=== PATIENT | male | born 1990 | race Caucasian/White ===

== ENCOUNTER 2021-06-18 09:30 | Emergency (ER) | payer MEDICAID ==
[~2021-06-18] VITALS: Ht 170.2 cm; Wt 82.0 kg
[2021-06-18] MEDS ORDERED: IBUPROFEN 600MG TABLET PO ONE (09:45)
[2021-06-18 09:48] VITALS: BP 100/71
[2021-06-18] MEDS ORDERED: T3 PO (10:45)
== END 2021-06-18 10:54 | disposition home or self-care (01) ==
LOC: ER 09:30
DX: S62.91XA Unspecified fracture of right hand, initial encounter for closed fracture (principal); Y08.89XA Assault by other specified means, initial encounter; Y93.89 Activity, other specified; Y92.89 Other specified places as the place of occurrence of the external cause; Y99.8 Other external cause status; F12.10 Cannabis abuse, uncomplicated; Z88.0 Allergy status to penicillin
CPT/HCPCS: 29125; 73130; 99283

== ENCOUNTER 2023-03-19 10:32 | Emergency (ER) | payer MEDICAID, OTHER ==
[~2023-03-19] VITALS: Ht 172.7 cm; Wt 81.0 kg
[~2023-03-19 10:32] MED LIST: T3 PO
[2023-03-19 10:39] VITALS: TEMP 98.4; O2SAT 97
[2023-03-19 13:47] VITALS: BP 130/74; PULSE 88; RESP 16
== END 2023-03-19 13:47 | disposition home or self-care (01) ==
LOC: ER 10:32
DX: S62.302A Unspecified fracture of third metacarpal bone, right hand, initial encounter for closed fracture (principal); Z88.0 Allergy status to penicillin; Y04.0XXA Assault by unarmed brawl or fight, initial encounter; Y93.89 Activity, other specified; Y92.89 Other specified places as the place of occurrence of the external cause; Y99.8 Other external cause status
CPT/HCPCS: 29125; 73120; 99283

== ENCOUNTER 2023-06-30 14:08 | Emergency (ER) | payer OTHER ==
[~2023-06-30] VITALS: Ht 175.3 cm; Wt 73.0 kg
[2023-06-30 14:14] VITALS: O2SAT 100
[2023-06-30 15:45] LABS: EOSINOPHILS % 0.5 % (0.0-5.0); HEMATOCRIT. 50.1 % (42.0-52.0); LYMPHOCYTES % 22.9 % (20.0-50.0); MEAN CORPUSCULAR HEMOGLOBIN 29.5 pg (28.0-32.0); MEAN CORPUSCULAR VOLUME 86.9 fL (80.0-94.0); MEAN PLATELET VOLUME 8.4 fl (7.4-10.4); MONOCYTES % 8.5 % (2.0-8.0); NEUTROPHILS % 67.1 % (40.0-76.0); PLATELET 363 x1000/uL (130-400); RED BLOOD CELL COUNT 5.76 mill/uL (4.7-6.1); RED CELL DISTRIBUTION WIDTH 13.5 % (11.6-14.6); WHITE BLOOD COUNT 7.5 x1000/uL (4.5-11.0)
[2023-06-30 15:50] LABS: ALANINE AMINOTRANSFERASE 21 IU/L (10-49); ALBUMIN 4.8 g/dL (3.2-4.8); ASPARTATE AMINOTRANSFERASE 16 IU/L (<34); BILIRUBIN TOTAL 0.5 mg/dL (0.1-1.0); CARBON DIOXIDE 28 mEq/L (21-32); CHLORIDE 104 mEq/L (98-107); CREATININE 0.9 mg/dL (0.6-1.3); GLUCOSE 77 mg/dL (70-105); PROTEIN TOTAL 7.3 g/dL (6.0-8.3); SODIUM 140 mEq/L (136-145); UREA NITROGEN BLOOD 8 mg/dL (9-23)
[2023-06-30 16:00] LABS: INR 1.1; PROTHROMBIN TIME 11.3 sec (9.6-11.0)
[2023-06-30 16:02] LABS: TROPONIN I HIGH SENSITIVITY < 4 ng/L (3.0-53)
[2023-06-30 17:49] VITALS: BP 134/82; PULSE 81; RESP 18; TEMP 97.8
== END 2023-06-30 17:49 | disposition home or self-care (01) ==
LOC: ER 14:24
DX: R07.89 Other chest pain (principal); F12.10 Cannabis abuse, uncomplicated; Z87.891 Personal history of nicotine dependence; Z88.0 Allergy status to penicillin
CPT/HCPCS: 36415; 71045; 80053; 84484; 85025; 93005; 99285

== ENCOUNTER 2023-07-04 10:12 | Emergency (ER) | payer OTHER ==
[~2023-07-04] VITALS: Ht 172.7 cm; Wt 85.0 kg
[2023-07-04 10:33] VITALS: BP 151/98; TEMP 98.1; O2SAT 100
[2023-07-04 11:18] LABS: BASOPHILS % 1.1 % (0.0-2.0); EOSINOPHILS % 0.6 % (0.0-5.0); HEMATOCRIT. 46.5 % (42.0-52.0); HEMOGLOBIN. 16.2 g/dL (14.0-18.0); LYMPHOCYTES % 29.4 % (20.0-50.0); MEAN CORPUSCULAR HEMOGLOBIN 30.2 pg (28.0-32.0); MEAN CORPUSCULAR HGB CONC 34.8 g/dL (31.0-37.0); MEAN CORPUSCULAR VOLUME 86.8 fL (80.0-94.0); MEAN PLATELET VOLUME 7.7 fl (7.4-10.4); MONOCYTES % 8.4 % (2.0-8.0); NEUTROPHILS % 60.5 % (40.0-76.0); PLATELET 342 x1000/uL (130-400); RED BLOOD CELL COUNT 5.36 mill/uL (4.7-6.1); RED CELL DISTRIBUTION WIDTH 13.4 % (11.6-14.6); WHITE BLOOD COUNT 5.2 x1000/uL (4.5-11.0)
[2023-07-04 11:33] LABS: ALANINE AMINOTRANSFERASE 21 IU/L (10-49); ALBUMIN 4.7 g/dL (3.2-4.8); ASPARTATE AMINOTRANSFERASE 19 IU/L (<34); BILIRUBIN TOTAL 0.8 mg/dL (0.1-1.0); CALCIUM 9.5 mg/dL (8.7-10.4); CARBON DIOXIDE 29 mEq/L (21-32); CHLORIDE 104 mEq/L (98-107); CREATININE 0.8 mg/dL (0.6-1.3); GLUCOSE 91 mg/dL (70-105); PROTEIN TOTAL 7.6 g/dL (6.0-8.3); SODIUM 139 mEq/L (136-145); UREA NITROGEN BLOOD 10 mg/dL (9-23)
[2023-07-04] MEDS ORDERED: POLY119P2 MT (14:25)
[2023-07-04 15:41] VITALS: PULSE 96; RESP 16
== END 2023-07-04 15:42 | disposition home or self-care (01) ==
LOC: ER 10:12
DX: R10.9 Unspecified abdominal pain (principal); K59.00 Constipation, unspecified; F12.10 Cannabis abuse, uncomplicated
CPT/HCPCS: 36415; 80053; 85025; 99283

== ENCOUNTER 2023-09-09 10:21 | Emergency (ER) | payer OTHER ==
[~2023-09-09] VITALS: Ht 170.2 cm; Wt 72.0 kg
[~2023-09-09 10:21] MED LIST changes: +POLY119P2 MT
[2023-09-09 10:22] VITALS: O2SAT 100
[2023-09-09] MEDS ORDERED: LIDOCAINE HCL/PF 1% 10 MG/ML 5ML VIAL INFIL ONE (10:45)
[2023-09-09] MEDS ORDERED: BACITRACIN ZINC OINT UDPKT TOP ONE (10:45)
[2023-09-09] MEDS: LIDOCAINE HCL/PF 1% 10 MG/ML 5ML VIAL INFIL NR (12:47)
[2023-09-09] MEDS: BACITRACIN ZINC OINT UDPKT TOP NR (12:47)
[2023-09-09 13:16] VITALS: BP 131/84; PULSE 68; RESP 19; TEMP 98.2
== END 2023-09-09 16:00 | disposition home or self-care (01) ==
LOC: ER 10:21
DX: S61.211A Laceration without foreign body of left index finger without damage to nail, initial encounter (principal); F12.90 Cannabis use, unspecified, uncomplicated; Z88.0 Allergy status to penicillin; X58.XXXA Exposure to other specified factors, initial encounter; Y93.89 Activity, other specified; Y92.89 Other specified places as the place of occurrence of the external cause; Y99.8 Other external cause status
CPT/HCPCS: 12002; 99282; J3490; Z7610 ×3